=== PATIENT | male | born 1985 | race Caucasian/White ===

== ENCOUNTER 2022-12-07 08:22 | Day surgery (SDC) | payer BC ==
[2022-12-07 08:48] LABS: Absolute Lymphocytes (CBC) 1.7 K/uL (0.7-4.9); Hematocrit 42.5 % (39.6-49.0); MCV 92.8 fL (80-100); MPV 7.1 fL (7.6-11.3); Platelets 239 thou/uL (152-406); RBC Red Blood Cell Count 4.58 M/uL (4.33-5.43)
[2022-12-07] MEDS ORDERED: Ringers Lactate 1,000 ML IV ONE (08:58)
[2022-12-07] MEDS ORDERED: CEFAZOLIN SODIUM 1 GM/VIAL ONE (08:58)
[2022-12-07 09:00] LABS: Potassium 4.1 mEq/L (3.5-5.1)
--- NOTE | 2022-12-07 09:23 | RAD REPORT ---
EXAM DESCRIPTION: RAD - Chest Pa And Lat (2 Views) - 12/07/2022 9:13 am CLINICAL HISTORY: PRE-OP Chest pain. COMPARISON: No comparisons FINDINGS: The lungs are clear. The heart is normal in size. No displaced fractures. IMPRESSION: No acute or concerning finding suspected. The USPSTF recommends annual screening for lung cancer with low-dose CT (LDCT) in adults aged 50 to 80 years who have a 20 pack-year smoking history and currently smoke or have quit within the past 15 years.
[2022-12-07] MEDS ORDERED: dexAMETHasone 4 MG/ML VIAL ONE (11:03)
[2022-12-07] MEDS ORDERED: propofoL 200 MG/20 ML VIAL IV ONE (11:03)
[2022-12-07] MEDS ORDERED: FENTANYL CITR 100 MCG/2 ML ONE (11:03)
[2022-12-07] MEDS ORDERED: ONDANSETRON 4 MG/2 ML VIAL ONE (11:03)
[2022-12-07] MEDS ORDERED: LIDOCAINE 2% MPF 5 ML VIAL ONE (11:03)
[2022-12-07] MEDS ORDERED: KETOROLAC 30 MG/ML INJ ONE (11:03)
[2022-12-07] MEDS ORDERED: BUPIVACAINE 0.5% PF 10 ML VIAL ONE (11:03)
[2022-12-07] MEDS ORDERED: MIDAZOLAM HCL 2 MG/2 ML INJ ONE (11:03)
--- NOTE | 2022-12-07 11:56 | P.BOP ---
Preoperative diagnosis: perineal abscess Postoperative diagnosis: same Primary procedure: Incision, drainage and excisional debridement of perineal abscess 7x7cm Estimated blood loss: <10cc Specimen: culture Findings: abscess extend to scrotal wall but no gross evidence of inside the scrotum Anesthesia: General Complications: None Drain(s): Other Transferred to: Recovery Room Condition: Good
[2022-12-07] MEDS ORDERED: MEPERIDINE HCL 25 MG/ML SYR ONE (12:01)
[2022-12-07 13:40] VITALS: BP 115/69; TEMP 97.3; O2SAT 98
--- NOTE | 2022-12-09 10:00 | OP ---
Surgeon: Preston Combs MD Preoperative Diagnosis: Perineal abscess. Postoperative Diagnosis: Perineal abscess. Procedure: Incision and drainage and excisional debridement of perineal abscess 7 x 7 cm. Estimated Blood Loss: Less than 10 mL. Specimen: Culture. Finding: Mass extending to the scrotal wall with thickening of the scrotal wall, but no gross eviden ce of intrascrotal involvement and no testicles were seen. Anesthesia: General plus local. Packing: Wet-to-dry. Indications: This is the case of a 36-year-old patient with right perineal abscess right at the base of the scrotum with skin involvement. The benefits, alternatives, and risks of an I and D and excis ion and debridement fully explained, which include, but not limited to infection, bleeding, damage to adjacent structures, anesthesia complication, recurrence, NM and even . He also understands th is may not relieve the symptoms. He might need more than one surgical intervention and he may requir e wound care. He signed a consent. Procedure In Detail: The area of concern was marked by me and the patient in the holding room this m orning and started to drain some pus. The patient was brought to the operating room, placed in supin e position. Anesthesia was done without complication. Then the patient was placed in a lithotomy po sition with proper protection. The right groin and genitalia and perianal region were prepped and dr aped in the usual sterile fashion. We palpated looking for fluctuance. We found the fluctuance area . We made an incision in that area to find that there was some necrotic tissue present. Fortunately , the skin over the scrotum does not go inside the scrotum that we can see at least closely _ all that devitalized tissue had to be removed abscess with multiple loculations that wer e explored. The area was irrigated. Cultures were obtained before that. Local anesthesia was appli ed. Hemostasis obtained and the area was packed with wet-to-dry dressing. The patient tolerated the procedure well. The patient was sent to Recovery in stable condition. Disposition: Home. Dressings will be wet-to-dry dressing daily. Follow up in my office in 1 week. REY/ALEXANDRA Voice ID: [id number] Report ID: [id number]
== END 2022-12-07 13:07 | disposition home or self-care (01) ==
LOC: OR 08:22
PROVIDERS: ATTEND Surgery
PROC: 0J9B00Z Drainage of Perineum Subcutaneous Tissue and Fascia with Drainage Device, Open Approach (ICD-10-PCS; principal; 2022-12-07 11:00)
DX: L02.215 Cutaneous abscess of perineum (principal)
CPT/HCPCS: 87070; 85025; 80048; 36415; 87205; 88304; 87075; 71046; 10060; J2704; J1100; J2001; J2250; J3010; J2175; J2405; J7120; J0690